=== PATIENT | female | born 1955 | race Caucasian/White ===

== ENCOUNTER 2018-08-12 06:20 | Observation (INO) | payer OTHER ==
[2018-08-12] MEDS: CEFAZOLIN 2 GM/50 ML (PMX) 50 ML (FOR WT < 120 KG) IVPB (06:00)
[~2018-08-12 06:20] MED LIST: LACTATED RINGER'S 1,000 ML IV
[2018-08-12] MEDS ORDERED: SUCCINYLCHOLINE CHLORIDE 100 MG/5 ML SYG IV (07:00)
[2018-08-12] MEDS ORDERED: ROCURONIUM 50 MG INJ ×2 (07:00→08:17)
[2018-08-12 07:10] LABS: ADD MAN DIFF? NO
[2018-08-12 07:12] LABS: WHITE BLOOD COUNT 6.5 10^3/ul (4.8-10.8)
[2018-08-12 07:12] LABS: BASOPHILS % 0.5 % (0.0-2.0); EOSINOPHILS # 0.2 10^3/ul (0.0-0.5); EOSINOPHILS % 3.7 % (0.0-7.0); HEMATOCRIT 39.6 % (37.0-47.0); HEMOGLOBIN 13.4 g/dl (12.0-16.0); LYMPHOCYTES # 1.7 10^3/ul (0.8-2.9); LYMPHOCYTES % 26.1 % (15.0-51.0); MEAN CORPUSCULAR HEMOGLOBIN 30.8 pg (29.0-33.0); MEAN CORPUSCULAR HGB CONC 33.8 g/dl (32.0-37.0); MEAN PLATELET VOLUME 12.4 fl (7.4-10.4); MONOCYTE # 0.6 10^3/ul (0.3-0.9); MONOCYTES % 9.2 % (0.0-11.0); NEUTROPHIL # 3.9 10^3/ul (1.6-7.5); NEUTROPHILS % 60.3 % (39.0-77.0); PLATELET COUNT 170 10^3/UL (140-415); RED BLOOD COUNT 4.35 10^6/ul (4.20-5.40); RED CELL DISTRIBUTION WIDTH 12.7 % (11.5-14.5)
[2018-08-12 07:36] LABS: ALANINE AMINOTRANSFERASE 34 IU/L (13-69); ALKALINE PHOSPHATASE 86 IU/L (42-121); ANION GAP 10 (5-13); ASPARTATE AMINO TRANSFERASE 31 IU/L (15-46); BILIRUBIN,INDIRECT 0.6 mg/dl (0-1.1); BILIRUBIN,TOTAL 0.6 mg/dl (0.2-1.3); CALCIUM 9.6 mg/dl (8.4-10.2); CARBON DIOXIDE 23 mmol/L (21-31); CHLORIDE 107 mmol/L (97-110); CREATININE 0.68 mg/dl (0.44-1.00); Estimated GFR > 60 mL/min (>60); GLUCOSE 123 mg/dl (70-220); SODIUM 140 mmol/L (135-144)
[2018-08-12 07:37] LABS: ALBUMIN 3.9 g/dl (3.3-4.9); TOTAL PROTEIN 6.9 g/dl (6.1-8.1)
[2018-08-12 07:44] LABS: INR 0.96; PROTIME 12.9 Sec (11.9-14.9)
[2018-08-12 07:45] LABS: PARTIAL THROMBOPLASTIN TIME 27.1 Sec (23.0-35.0)
[2018-08-12 07:50] LABS: BLOOD UREA NITROGEN 23 mg/dl (7-20)
[2018-08-12] MEDS ORDERED: BUPIVACAINE 0.25%/EPI (SDV) 10 ML INJ (08:05)
[2018-08-12] MEDS ORDERED: PROPOFOL 20 ML (08:17)
[2018-08-12] MEDS ORDERED: CEFAZOLIN 1 GM INJ (08:17)
[2018-08-12] MEDS ORDERED: DEXAMETHASONE 4 MG/ML 1 ML INJ (08:18)
[2018-08-12] MEDS ORDERED: METOCLOPRAMIDE 10 MG INJ (08:18)
[2018-08-12] MEDS ORDERED: HYDROmorphONE 2 MG/ML SYG (08:18)
[2018-08-12] MEDS ORDERED: ONDANSETRON 4 MG INJ (08:18)
[2018-08-12] MEDS ORDERED: MIDAZOLAM 1 MG/ML 2 ML INJ (08:19)
[2018-08-12] MEDS ORDERED: hydrALAzine 20 MG INJ (08:54)
[2018-08-12] MEDS ORDERED: LABETALOL HCL 20MG INJ (08:54)
[2018-08-12] MEDS ORDERED: PHENYLephrine (100 MCG/ML) 5ML SYG (09:32)
[2018-08-12] MEDS: LIDOCAINE 1%/EPI 30 ML INJ (09:37)
[2018-08-12] MEDS: THROMBIN 5000 UNIT VIAL (10:18)
[2018-08-12] MEDS: POLYMYXIN/BACITRACIN 1L IRRIG (10:18)
[2018-08-12] MEDS: GELATIN SIZE 100 SPONGE (10:18)
[2018-08-12] MEDS ORDERED: EPHEDrine SULFATE 50 MG/5 ML SYG IV (10:30)
[2018-08-12] MEDS ORDERED: HYDROmorphONE 1 MG/5 ML IV SYRINGE IV ×2 (10:30)
[2018-08-12] MEDS ORDERED: FENTAnyl 50 MCG/ML VIAL IV ×2 (10:30)
[2018-08-12] MEDS ORDERED: DIPHENHYDRAMINE 50 MG INJ IV (10:30)
[2018-08-12] MEDS ORDERED: OXYCODONE/ACETAMINOPHEN (5/325) TAB PO (10:30)
[2018-08-12] MEDS ORDERED: hydrALAzine 20 MG INJ IV (10:30)
[2018-08-12] MEDS ORDERED: LABETALOL HCL 20MG INJ IV (10:30)
[2018-08-12] MEDS ORDERED: METOCLOPRAMIDE 10 MG INJ IV (10:30)
[2018-08-12] MEDS ORDERED: MEPERIDINE 25 MG INJ IV (10:30)
[2018-08-12] MEDS: HEMOSTATIC MATRIX SYG ZFS (11:39)
[2018-08-12] MEDS ORDERED: NEOSTIGMINE 3 MG/3 ML SYRINGE (12:52)
[2018-08-12] MEDS ORDERED: GLYCOPYRROLATE 0.4 MG INJ (12:52)
[2018-08-12] MEDS ORDERED: DIPHENHYDRAMINE 50 MG CAP PO (13:30)
[2018-08-12] MEDS ORDERED: NALOXONE (0.4 MG/ML) INJ IV (13:30)
[2018-08-12] MEDS ORDERED: ONDANSETRON 4 MG INJ IV (13:30)
[2018-08-12] MEDS ORDERED: ACETAMINOPHEN 325 MG TAB PO (13:30)
[2018-08-12] MEDS ORDERED: ZOLPIDEM 5 MG TAB PO (13:30)
[2018-08-12] MEDS ORDERED: NACL 0.9% 3 ML SYG IV (13:30)
[2018-08-12] MEDS ORDERED: DIAZEPAM 5 MG TAB PO (13:30)
[2018-08-12] MEDS ORDERED: HYDROCODONE/APAP (5/325) TAB PO (13:30)
[2018-08-12] MEDS ORDERED: morphine 1 MG/ML 30 ML (PCA) (13:36)
[2018-08-12] MEDS: HYDROmorphONE 1 MG/5 ML IV SYRINGE IV (13:39)
[2018-08-12] MEDS: morphine 1 MG/ML 30 ML (PCA) IV (13:54)
[2018-08-12] MEDS: FENTAnyl 50 MCG/ML VIAL IV (14:16)
[2018-08-12] MEDS: CEFAZOLIN 1 GM/50 ML (PMX) 50 ML IVPB ×3 (14:21→23:50)
[2018-08-12] MEDS: ONDANSETRON 4 MG INJ IV (14:22)
[2018-08-13] MEDS: morphine 1 MG/ML 30 ML (PCA) IV (01:26)
[2018-08-13 05:16] LABS: HEMATOCRIT 36.4 % (37.0-47.0)
[2018-08-13 05:39] LABS: ANION GAP 8 (5-13); BLOOD UREA NITROGEN 24 mg/dl (7-20); CARBON DIOXIDE 27 mmol/L (21-31); CHLORIDE 105 mmol/L (97-110); CREATININE 0.75 mg/dl (0.44-1.00); Estimated GFR > 60 mL/min (>60); GLUCOSE 123 mg/dl (70-220); POTASSIUM 4.4 mmol/L (3.5-5.1); SODIUM 140 mmol/L (135-144)
[2018-08-13] MEDS: CEFAZOLIN 1 GM/50 ML (PMX) 50 ML IVPB ×2 (05:42→08:09)
[2018-08-13] MEDS: SOD CHLORIDE 0.9% 1,000 ML IV (06:00)
[2018-08-13] MEDS: DOCUSATE SODIUM 100 MG CAP PO ×2 (08:09→20:17)
[2018-08-13] MEDS ORDERED: TIZANIDINE 4 MG TAB PO (08:30)
[2018-08-13] MEDS: [UNRECOGNIZED DRUG - REMARK] XX (09:00)
[2018-08-13] MEDS ORDERED: NON-FORMULARY/PATIENT OWN MED (Valsartan-Hydrochlorothiazide (Valsartan-HCTZ) 1 TAB) PO (09:00)
[2018-08-13] MEDS: PANTOPRAZOLE (EC) 40 MG TAB PO (09:18)
[2018-08-13] MEDS: GABAPENTIN 100 MG CAP PO ×2 (09:18→20:17)
[2018-08-13] MEDS: LORATADINE 10 MG TAB PO (09:18)
[2018-08-13] MEDS: ACETAMINOPHEN 1000MG/100ML IV 100 ML IVPB ×3 (09:27→20:17)
[2018-08-13] MEDS: HYDROCODONE/APAP (5/325) TAB PO ×2 (12:58→16:51)
[2018-08-13] MEDS: HYDROCHLOROTHIAZIDE 12.5 MG CAP PO (15:11)
[2018-08-13] MEDS: LOSARTAN 50 MG TAB PO (15:12)
[2018-08-14] MEDS: HYDROCODONE/APAP (5/325) TAB PO ×3 (02:49→11:30)
[2018-08-14] MEDS: ACETAMINOPHEN 1000MG/100ML IV 100 ML IVPB (02:49)
[2018-08-14] MEDS: CEPASTAT LOZENGE MT (02:55)
[2018-08-14] MEDS: POLYETHYLENE GLYCOL 17 GM PACKET NGT (06:20)
[2018-08-14] MEDS: PANTOPRAZOLE (EC) 40 MG TAB PO (06:20)
[2018-08-14] MEDS: DOCUSATE SODIUM 100 MG CAP PO (08:46)
[2018-08-14] MEDS: LORATADINE 10 MG TAB PO (08:46)
[2018-08-14] MEDS: HYDROCHLOROTHIAZIDE 12.5 MG CAP PO (08:46)
[2018-08-14] MEDS: GABAPENTIN 100 MG CAP PO (08:47)
[2018-08-14] MEDS: LOSARTAN 50 MG TAB PO (08:49)
[2018-08-14] MEDS: AL HYDROX/MG HYDROX/SIMETH 30 ML CUP PO (11:27)
== END 2018-08-14 14:38 | disposition home or self-care (01) ==
LOC: REC 06:20 → MS1 14:50
DX: M47.22 Other spondylosis with radiculopathy, cervical region (principal); I10 Essential (primary) hypertension; Z86.73 Personal history of transient ischemic attack (TIA), and cerebral infarction without residual deficits; K21.9 Gastro-esophageal reflux disease without esophagitis; F17.210 Nicotine dependence, cigarettes, uncomplicated; E66.9 Obesity, unspecified; Z68.36 Body mass index [BMI] 36.0-36.9, adult
CPT/HCPCS: 20936; 72040; 80048; 80053; 85014; 85018; 85025; 85610; 85730; 86850; 86900; 86901; 87086; 97116; 97162; 97530; 99217